=== PATIENT | male | born 1950 | race Caucasian/White ===

== ENCOUNTER 2021-04-01 08:18 | Day surgery (SDC) | payer MEDICARE ==
[2021-04-01] VITALS (14 sets, daily range): BP systolic 80–128; BP diastolic 50–82
[~2021-04-01 08:18] MED LIST: AMLO-258 PO; ATOR40TA71 PO; CYAN250010 PO; FOLI0.4T6 PO; HYDR25TA PO; LINA145C PO; NAPR220T57 PO; OMEP40CA21 PO; SODIUM CHLORIDE 0.9% 1000ML 1,000 ML IV ONE
[2021-04-01] MEDS ORDERED: PROPOFOL 10 MG/ML 20ML VIAL IV ONE (09:38)
[2021-04-01] MEDS ORDERED: LEVOFLOXACIN 500 MG/D5W 100 ML 100 ML ONE (09:47)
[2021-04-01] MEDS ORDERED: EPHEDRINE SULFATE 50 MG/ML AMPULE ONE ×2 (10:10→10:51)
== END 2021-04-01 11:35 | disposition home or self-care (01) ==
LOC: ENDO 08:18 → DAH 08:18 → ENDO 11:35
PROVIDERS: ATTEND Internal Medicine Gastroenterology
DX: K86.2 Cyst of pancreas (principal); K86.89 Other specified diseases of pancreas; K86.1 Other chronic pancreatitis; K31.89 Other diseases of stomach and duodenum; Z20.822 Contact with and (suspected) exposure to COVID-19; I10 Essential (primary) hypertension; F41.9 Anxiety disorder, unspecified; F17.210 Nicotine dependence, cigarettes, uncomplicated; E78.2 Mixed hyperlipidemia; R63.4 Abnormal weight loss; K59.01 Slow transit constipation; D75.9 Disease of blood and blood-forming organs, unspecified; I71.4 Abdominal aortic aneurysm, without rupture; R18.8 Other ascites; Z86.010 Personal history of colon polyps; Z72.89 Other problems related to lifestyle; Z68.1 Body mass index [BMI] 19.9 or less, adult
CPT/HCPCS: 43237; 43239; 87635; A4215 ×2; A4221; A4222; A4223; A4606; A4620; A4657; A4663; C9803; J1956; J2704; J3490 ×2; J7030 ×2

== ENCOUNTER 2021-06-10 09:32 | Day surgery (SDC) | payer MEDICARE ==
[2021-06-10] VITALS (18 sets, daily range): BP systolic 121–166; BP diastolic 73–100
[~2021-06-10 09:32] MED LIST changes: +0.9%NACL 1000ML 1,000 ML IV ONE; -ATOR40TA71 PO; -FOLI0.4T6 PO; +FOLI0.8T22 PO; -HYDR25TA PO; +INDOMETHACIN 50 MG SUPP.RECT RC SCH; +LEVO75CA5 PO; -LINA145C PO; +LIPA1CAP18 PO; -NAPR220T57 PO; -SODIUM CHLORIDE 0.9% 1000ML 1,000 ML IV ONE; +THIA50TA13 PO; +VENL150T3 PO
[2021-06-10] MEDS ORDERED: IOHEXOL-350 50ML VIAL IV ONE (09:45)
[2021-06-10] MEDS ORDERED: PROPOFOL 10 MG/ML 20ML VIAL IV ONE (12:59)
[2021-06-10] MEDS ORDERED: ATROPINE 1MG SYG IVP ONE (13:00)
[2021-06-10] MEDS ORDERED: FENTANYL CITRATE PF 50 MCG/1 ML 2ML VIAL ONE (13:00)
[2021-06-10] MEDS ORDERED: SUCCINYLCHOLINE 200MG/10ML SYR ONE (13:01)
[2021-06-10] MEDS ORDERED: GLYCOPYRROLATE 0.2 MG/ML 5 ML VIAL ONE (13:01)
[2021-06-10] MEDS ORDERED: GLUCAGON 1MG KIT 1 MG ML ONE (13:21)
[2021-06-10] MEDS ORDERED: INDOMETHACIN 50 MG SUPP.RECT RC SCH (13:30)
[2021-06-10] MEDS ORDERED: INDOMETHACIN 50 MG SUPP.RECT RC ONE (16:30)
== END 2021-06-10 15:40 | disposition home or self-care (01) ==
LOC: ENDO 09:32 → DAH 09:32 → ENDO 15:40
PROVIDERS: ATTEND Internal Medicine Gastroenterology
DX: K86.0 Alcohol-induced chronic pancreatitis (principal); K86.3 Pseudocyst of pancreas; I10 Essential (primary) hypertension; F41.9 Anxiety disorder, unspecified; E78.5 Hyperlipidemia, unspecified; I71.4 Abdominal aortic aneurysm, without rupture; R63.4 Abnormal weight loss; K59.01 Slow transit constipation; K57.30 Diverticulosis of large intestine without perforation or abscess without bleeding; D75.9 Disease of blood and blood-forming organs, unspecified; E78.2 Mixed hyperlipidemia; Z86.010 Personal history of colon polyps; F17.210 Nicotine dependence, cigarettes, uncomplicated; Z72.9 Problem related to lifestyle, unspecified; Z72.89 Other problems related to lifestyle; Z79.899 Other long term (current) drug therapy; Z68.1 Body mass index [BMI] 19.9 or less, adult
CPT/HCPCS: 43274; 74329; 87426; 93005; A4215 ×2; A4221; A4222; A4223; A4606; A4620; A4657 ×2; A4663; C1769; C1875; J0330; J0461; J1610; J2704; J3010; J3490; J7030; Q9967; 43260; 74330

== ENCOUNTER → 2021-07-29 | Outpatient (CLI) | payer MEDICARE ==
[~2021-07-29] MED LIST changes: -0.9%NACL 1000ML 1,000 ML IV ONE; -INDOMETHACIN 50 MG SUPP.RECT RC SCH
[2021-07-29 10:46] LABS: CREATININE 0.7 mg/dL (0.5-1.5)
== END | disposition home or self-care (01) ==
LOC: LAB 09:10
PROVIDERS: ATTEND Internal Medicine Cardiovascular Disease
DX: I71.4 Abdominal aortic aneurysm, without rupture (principal); I10 Essential (primary) hypertension; J90 Pleural effusion, not elsewhere classified; R94.31 Abnormal electrocardiogram [ECG] [EKG]; D50.9 Iron deficiency anemia, unspecified
CPT/HCPCS: 36415; 82565; 84520

== ENCOUNTER → 2021-07-31 | Outpatient (CLI) | payer MEDICARE ==
[~2021-07-31] MED LIST changes: +IOHEXOL 350 MG/ML 100ML INFUS..BTL IV ONE
== END | disposition home or self-care (01) ==
LOC: OIH 07:59
PROVIDERS: ATTEND Internal Medicine Cardiovascular Disease
DX: I71.4 Abdominal aortic aneurysm, without rupture (principal); K76.0 Fatty (change of) liver, not elsewhere classified; K76.89 Other specified diseases of liver; N40.0 Benign prostatic hyperplasia without lower urinary tract symptoms; I74.11 Embolism and thrombosis of thoracic aorta; K86.89 Other specified diseases of pancreas
CPT/HCPCS: 74174; Q9967